=== PATIENT | male | born 1955 | race Caucasian/White ===

== ENCOUNTER 2022-06-10 10:01 | Observation (INO) | payer MEDICAID, SELFPAY ==
--- NOTE | 2022-06-10 | ECG_ITS ---
Test Reason : chest pain Blood Pressure : / mmHG Vent. Rate : 079 BPM Atrial Rate : 079 BPM P-R Int : 154 ms QRS Dur : 086 ms QT Int : 362 ms P-R-T Axes : 058 -49 053 degrees QTc Int : 415 ms Normal sinus rhythm Left axis deviation Septal infarct , age undetermined Abnormal ECG No previous ECGs available Referred By: Generic ED Physician Electronically Signed By:SADIQ PRIDE
--- NOTE | ~2022-06-10 | CT_ITS ---
EXAMINATION: CT ABDOMEN AND PELVIS WITHOUT CONTRAST CLINICAL INFORMATION: Acute kidney injury. Question obstruction. COMPARISON: None TECHNIQUE: Multidetector volumetric imaging was performed from the superior aspect of the liver through the pubic symphysis. Sagittal and coronal reformatted images were obtained on the technologist's workstation. This CT examination was performed using dose optimization techniques as appropriate, variously including the following: *Automated exposure control *Adjustment of mA and/or kV according to patient size (this includes techniques or standardized protocols for targeted exams where dose is matched to indication/reason for exam; i.e. extremities or head) *Use of iterative reconstruction technique DLP: 754 mGy-cm FINDINGS: LUNG BASES: Mild bibasilar atelectasis. LIVER, GALLBLADDER, AND BILIARY TREE: The liver is normal in size, shape, and attenuation. No focal hepatic lesion or biliary ductal dilatation is present. The gallbladder is unremarkable with no evidence of radiopaque gallstones, gallbladder wall thickening, or obvious pericholecystic inflammatory changes. PANCREAS: Unremarkable. SPLEEN: Unremarkable. ADRENAL GLANDS: Unremarkable. KIDNEYS AND URETERS: No ureteral calculi. No hydronephrosis. Mild bilateral perinephric stranding. 2 mm calcification in the left renal midpole calyx, probable small nonobstructing calculus. No suspicious renal lesions., BLADDER: Unremarkable. GASTROINTESTINAL TRACT: Nonobstructive bowel gas pattern. No acute findings evident with the small or large bowel.. The appendix is unremarkable. No free fluid. ABDOMINAL WALL: Small fat-containing umbilical hernia. LYMPH NODES: No adenopathy seen. VASCULAR: No aneurysmal aortic dilatation. Prominent atherosclerotic vascular calcification. PELVIC VISCERA: Prostate measures 4.6 cm transverse. Prostatic calcifications. OSSEOUS STRUCTURES: Spondylosis in the visualized spine. No acute findings seen. CT/CT abdomen pelvis wo IV con IMPRESSION: 1. Mild bilateral perinephric stranding. No ureteral calculi. No hydronephrosis. 2 mm nonobstructing left renal midpole calculus. 2. Mild bibasilar atelectasis. 3. Enlarged prostate. Fleischner guidelines were followed.
--- NOTE | ~2022-06-10 | XR_ITS ---
EXAMINATION: XR CHEST CLINICAL INFORMATION: Chest pain. COMPARISON: None TECHNIQUE: Frontal view of the chest was obtained. FINDINGS: No significant abnormality is noted involving the heart, lungs, mediastinum, bony thorax or soft tissues. XR/XR chest 1V IMPRESSION: No acute cardiopulmonary process.
[2022-06-10 10:34] VITALS: BP 128/68; PULSE 90; RESP 18; TEMP 36.4; O2SAT 98; BMI 33.0
--- NOTE | 2022-06-10 10:35 | MHC.EDTECH ---
EKG completed and signed by attending physician
[2022-06-10 10:40] VITALS: BP 157/66
--- NOTE | 2022-06-10 10:40 | PC.NURSE ---
Initial pressure charted in error patient pressure 157/66
[2022-06-10 11:01] LABS: Basophils Absolute Auto 0.1 X10*3/uL (0.0-0.2); Basophils Percent Auto 0.8 % (0-2); Eosinophils Absolute Auto 0.3 X10*3/uL (0.0-0.4); Hematocrit 39.6 % (42.0-52.0); Hemoglobin 12.8 g/dl (14.0-18.0); Imm Gran Abs Auto 0.01 X10*3/uL (0.00-0.03); Imm Gran Pct Auto 0.2 % (0.0-0.4); Lymphocytes Absolute Auto 2.2 X10*3/uL (1.2-4.9); Lymphocytes Percent Auto 33.2 % (20-40); MANUAL DIFF FLAG SCAN; Mean Corpuscular HGB Conc 32.3 g/dl (31.0-36.0); Mean Corpuscular Hemoglobin 27.6 pg (27.0-33.0); Mean Corpuscular Volume 85.5 fL (80.0-98.0); Mean Platelet Volume 9.6 fL (9.4-12.4); Monocytes Absolute Auto 0.6 X10*3/uL (0.1-1.2); Neutrophils Absolute Auto 3.5 x10*3/uL (2.0-8.3); Neutrophils Percent Auto 52.8 % (45-73); PLT CLUMP 1; Red Blood Count 4.63 X10*6/uL (4.60-5.80); Red Cell Distribution Width 12.6 % (11.0-16.0); SCAN SMEAR FLAG 1
[2022-06-10 11:06] LABS: Prothrombin Time 11.1 SEC (10.0-13.1)
[2022-06-10 11:19] LABS: Platelet Count 336 X10*3/uL (160-400); White Blood Count 6.6 X10*3/uL (4.8-10.8)
[2022-06-10 11:20] LABS: SLIDE REVIEW VERIFIED
[2022-06-10 11:23] LABS: Troponin-I High Sensitivity 5.8 ng/L (<3.5-35.0)
--- NOTE | 2022-06-10 13:16 | ED.CHESTPAIN ---
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 He describes it as a pressure on the left side of the chest, 2-06/10, that is relieved with burping or about and hour after taking Gas-X which he has been taking daily. He finds his symptoms occur with ingestion of dairy, breads, fried food, etc and do not occur with fish or vegetables. He denies fever, chills, night sweats, unexplained weight changes, n/v/d, constipation, abd pain, headache, dizziness, syncope, back pain, or extremity pain. They are unsure how long he will be visiting and does not have health insurance here. Expressed additional concerns of frequent urination and nocturia. 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 No known history of CAD. No family history of CAD/PE/DVT. Had COVID 3 weeks ago and denies residual symptoms. MD complaint: chest discomfort Onset (ago): week(s) (3) Timing of current episode: daily Prior episodes: Yes Onset: after eating Pain location: left chest Pain radiation: none Severity: mild Pain scale (0-10): 3 Quality: aching and sharp Relieving factors: medication-other (gas-x) Exacerbating factors: eating Context: recent travel (Pt from [place], new to [facility]) Treatment prior to arrival: none Risk Factors Coronary artery disease risk factors: smoking history and hypertension Thoracic aortic dissection risk factors: none Related Data Allergies Allergy/AdvReac Type Severity Reaction Status Date / Time Unable to Assess Allergy Verified 06/10/22 13:20 Review of Systems Review of Systems: Yes all other systems are reviewed and are negative Constitutional: Constitutional: Reports no additional constitutional complaints, Denies body ache(s), Denies chills, Denies fever(s), Denies headache(s) and Denies weakness Eyes: Eyes: Reports no additional eye complaints and Denies change in vision ENT: Reports system reviewed and no additional complaints, except as documented, Denies dizziness, Denies headache(s), Denies nasal congestion, Denies nasal discharge and Denies neck pain Cardiovascular: Cardiovascular: Reports as per HPI, Reports no additional cardiovascular complaints, Denies chest pain, Denies leg edema and Denies dyspnea Respiratory: Respiratory: Reports no additional respiratory complaints, Denies cough and Denies dyspnea Gastrointestinal: Gastrointestinal: Reports no additional gastrointestinal complaints, Denies abdominal pain, Denies diarrhea, Denies nausea and Denies vomiting Genitourinary: Genitourinary: Reports nocturia, Reports urinary frequency and Denies urinary incontinence Musculoskeletal: Musculoskeletal: Reports no additional musculoskeletal complaints, Denies back pain, Denies arthralgias, Denies joint swelling, Denies neck pain, Denies numbness and Denies tingling Integumentary/Breasts: Skin/Breast: Reports system reviewed and no additional complaints, except as docu and Denies rash Neurologic: Reports system reviewed and no additional complaints, except as documented, Denies Abnormal speech present, Denies dizziness, Denies headache(s), Denies numbness, Denies tingling and Denies weakness [facility] Past Medical History Attestation statement: The following information was validated with the patient. Source: old records reviewed and nursing notes reviewed Social History Social History Alcohol intake: never Smoked in Last 30 Days: No Use of substances other than those prescribed or required for medical reasons: No Advance Directives: Yes Advance Directives Information Provided: Yes Advance Directives on File: No Physical Exam Vital Signs: Vital Signs: Last Vital Signs Temp 97.5 F 06/10/22 10:34 Pulse 67 06/10/22 13:29 Resp 20 06/10/22 13:29 BP 154/55 H 06/10/22 13:29 Pulse Ox 96 06/10/22 13:29 O2 Del Method 06/10/22 13:29 BMI result Body Mass Index 33.0 Const: General: cooperative, healthy appearing, comfortable and no acute distress Orientation/consciousness: patient oriented x3 Limitations: no limitations HEENT: Head: Yes normal to inspection Ears: hearing grossly normal bilaterally General nose exam: Normal external nose present Face and sinus: Yes normal facial exam Mouth: Normal oral and palatal mucosa present Throat: Yes posterior oropharynx normal Eyes: General: appearance normal, both eyes and all related structures Pupils: Equal, round and reactive pupils present Neck: Neck: Yes normal visual inspection Chest: Chest palpation & inspection: normal inspection of the chest Resp: Effort & Inspection: normal respiratory effort Auscultation: clear to auscultation bilaterally Cardio: Rate: regular rate Rhythm: regular rhythm Peripheral pulses: Peripheral pulses 2+ throughout GI: Inspection: Yes normal to inspection Palpation (GI): Soft to palpation and nontender Auscultation: normal bowel sounds Back/Spine/Pelvis: Thoracic/Lumbar Spine: thoracic and lumbar spine normal to inspection Skin: General skin exam: no rashes or lesions noted Neuro: General: patient oriented x3, no focal motor deficits and normal sensation to monofilament Cranial nerves: Yes Equal, round and reactive pupils present Cognition (Neuro): normal cognition Speech: No Abnormal speech present Gait exam (Neuro): Normal gait present Motor exam (neuro): 5/5 motor strength present throughout Extrem: General: Yes normal to inspection, Yes no pedal edema and Yes no calf tenderness Course Course Course Narrative: Labs show JC with mild hyperK. no previous labs for comparison available. Patient denies any history of renal issues in the past. Patient denies NSAID use, on norvasc only. Does report drinks about 8 ounces of water daily which is typical for him. Also reports urinary urgency, nocturia. ?BPH or obstructive cause. Will obtain UA. Will need admission. troponin is flat. EKG shows no ischemic changes. Chest pain not typical for ACS. Low concern for dissection or PE. Patient is COVID screen positive. Patient had COVID 3 weeks ago and reports he recovered from this. will admit for further workup Medications Administered Discontinued Medications Generic Name Dose Route Start Last Admin Trade Name Freq PRN Reason Stop Dose Admin Sodium Chloride 1,000 mls @ 999 mls/hr 06/10/22 15:45 06/10/22 16:39 Ns IV 06/10/22 16:45 999 mls/hr .Q1H1M [facility] Administration Medical Decision Making Medical Decision Making [facility] Narrative: This patient presents with chest pain, with symptoms suggestive of noncardiac chest pain. History without high risk features (e.g., no exertional component, not relieved with rest, diet-related and relieved with burping and gas-x ). CAD risk factors including age, smoking history and hypertension. Exam without evidence of volume overload. EKG without signs of active ischemia. HEART score:3. Given the timing of pain to ER presentation, single troponin to evaluate for NSTEMI. Presentation not consistent with acute PE (Wells low risk 0.0 points // PERC +1 for age), pneumothorax, thoracic arotic dissection, cardiac effusion or tamponade. Plan: labs, troponin, EKG, CXR, serial reassessment We had a lengthy discussion about a coming up with a plan based on how long he was deciding to stay in the [facility]. He will need to get health insurance and establish a primary care provider. Differential Diagnosis Differential Diagnoses: The differential diagnosis associated with the presentation includes see discussion above Admission/Observation Consideration of admission/observation: Escalation of care including admission/observation considered JC-need further w/u, IVF, re-assessment Consult Healthcare Provider Management of the patient was discussed with: Hospitalist spoke to dr baugh who accepted admission Lab Data MDM Lab Attestation statement: I reviewed the patient's lab results. 06/10/22 10:53 Labs: Lab Results 06/10/22 06/10/22 06/10/22 Range/Units 10:53 10:53 10:53 WBC 6.6 (4.8-10.8) X10*3/uL RBC 4.63 (4.60-5.80) X10*6/uL Hgb 12.8 L (14.0-18.0) g/dl Hct 39.6 L (42.0-52.0) % MCV 85.5 (80.0-98.0) fL MCH 27.6 (27.0-33.0) pg MCHC 32.3 (31.0-36.0) g/dl RDW 12.6 (11.0-16.0) % Plt Count 336 (160-400) X10*3/uL MPV 9.6 (9.4-12.4) fL Immature Gran % (Auto) 0.2 (0.0-0.4) % Neut % (Auto) 52.8 (45-73) % Lymph % (Auto) 33.2 (20-40) % Stoddard % (Auto) 9.0 (2-11) % Eos % (Auto) 4.0 (0-4) % Baso % (Auto) 0.8 (0-2) % Lymph # (Auto) 2.2 (1.2-4.9) X10*3/uL Stoddard # (Auto) 0.6 (0.1-1.2) X10*3/uL Eos # (Auto) 0.3 (0.0-0.4) X10*3/uL Baso # (Auto) 0.1 (0.0-0.2) X10*3/uL Abs Immat Gran (auto) 0.01 (0.00-0.03) X10*3/uL Absolute Neuts (auto) 3.5 (2.0-8.3) x10*3/uL Absolute Nucleated RBC 0.000 (0.0-0.012) X10*3/uL Nucleated RBC % (auto) 0.0 (0.0-0.2) /100WBC Smear Tech's Comments VERIFIED PT 11.1 (10.0-13.1) SEC INR 1.0 (0.9-1.1) Sodium (135-145) mmol/L Potassium (3.3-5.1) mmol/L Chloride (96-108) mmol/L Carbon Dioxide (22-29) mmol/L Anion Gap (12-20) BUN (9-16) mg/dL Creatinine (0.5-1.4) mg/dL Estim Creat Clear Calc Estimated GFR Random Glucose (60-115) mg/dL Calcium (8.4-10.2) mg/dL Total Bilirubin (0.0-1.0) mg/dL AST (5-37) U/L ALT (0-40) U/L Alkaline Phosphatase (39-117) U/L Troponin I High Sens 5.8 (<3.5-35.0) ng/L Total Protein (6.5-8.0) g/dL Albumin (3.5-5.0) g/dL Lipase (8-78) U/L COVID-19 (AJAY) (Negative) COVID-19 Clin Com 06/10/22 06/10/22 06/10/22 Range/Units 14:53 14:53 16:32 WBC (4.8-10.8) X10*3/uL RBC (4.60-5.80) X10*6/uL Hgb (14.0-18.0) g/dl Hct (42.0-52.0) % MCV (80.0-98.0) fL MCH (27.0-33.0) pg MCHC (31.0-36.0) g/dl RDW (11.0-16.0) % Plt Count (160-400) X10*3/uL MPV (9.4-12.4) fL Immature Gran % (Auto) (0.0-0.4) % Neut % (Auto) (45-73) % Lymph % (Auto) (20-40) % Stoddard % (Auto) (2-11) % Eos % (Auto) (0-4) % Baso % (Auto) (0-2) % Lymph # (Auto) (1.2-4.9) X10*3/uL Stoddard # (Auto) (0.1-1.2) X10*3/uL Eos # (Auto) (0.0-0.4) X10*3/uL Baso # (Auto) (0.0-0.2) X10*3/uL Abs Immat Gran (auto) (0.00-0.03) X10*3/uL Absolute Neuts (auto) (2.0-8.3) x10*3/uL Absolute Nucleated RBC (0.0-0.012) X10*3/uL Nucleated RBC % (auto) (0.0-0.2) /100WBC Smear Tech's Comments PT (10.0-13.1) SEC INR (0.9-1.1) Sodium 139 (135-145) mmol/L Potassium 5.4 H (3.3-5.1) mmol/L Chloride 112 H (96-108) mmol/L Carbon Dioxide 14 L (22-29) mmol/L Anion Gap 18 (12-20) BUN 28 H (9-16) mg/dL Creatinine 2.38 H (0.5-1.4) mg/dL Estim Creat Clear Calc 30.8 Estimated GFR 27 Random Glucose 92 (60-115) mg/dL Calcium 8.8 (8.4-10.2) mg/dL Total Bilirubin 0.4 (0.0-1.0) mg/dL AST 14 (5-37) U/L ALT 7 (0-40) U/L Alkaline Phosphatase 106 (39-117) U/L Troponin I High Sens (<3.5-35.0) ng/L Total Protein 6.5 (6.5-8.0) g/dL Albumin 3.3 L (3.5-5.0) g/dL Lipase 59 Cancelled (8-78) U/L COVID-19 (AJAY) Positive A (Negative) COVID-19 Clin Com See Note Independent Interpretation I performed an independent interpretation of an: EKG and Plain X-Ray Interpretation: I independently EKG which shows NSR with rate 79, normal VA, normal QRS, normal QT I independently reviewed the chest x-ray and agree with radiologist's report Radiology Impression Discussion of test interpretation with radiology: I have reviewed the radiologist's reading. Radiologist Impression: [place] [id number] XRay Report Signed Patient: Kavon Mcdowell MR#: [id number] : 1955 Acct:[id number] Age/Sex: 66 / M ADM Date: 06/10/22 Loc: .ED Attending Dr: Ordering Physician: Generic ED Physician Date of Service: 06/10/22 Procedure(s): XR chest 1V Accession Number(s): [id number] cc: Generic ED Physician~ EXAMINATION: XR CHEST CLINICAL INFORMATION: Chest pain. COMPARISON: None TECHNIQUE: Frontal view of the chest was obtained. FINDINGS: No significant abnormality is noted involving the heart, lungs, mediastinum, bony thorax or soft tissues. XR/XR chest 1V IMPRESSION: No acute cardiopulmonary process. ? Independent Historian Clinical information obtained from an independent historian. History obtained from or confirmed by: Other (SON) Discharge Plan Discharge Clinical Impression: JC (acute kidney injury) Patient Disposition: Admitted As Inpatient
[2022-06-10 13:29] VITALS: BP 154/55; PULSE 67; RESP 20; O2SAT 96
[2022-06-10 15:34] LABS: Alanine Aminotransferase 7 U/L (0-40); Albumin Level 3.3 g/dL (3.5-5.0); Alkaline Phosphatase 106 U/L (39-117); Anion Gap 18 (12-20); Aspartate Amino Transferase 14 U/L (5-37); Bilirubin Total 0.4 mg/dL (0.0-1.0); Blood Urea Nitrogen 28 mg/dL (9-16); Calcium 8.8 mg/dL (8.4-10.2); Carbon Dioxide 14 mmol/L (22-29); Chloride 112 mmol/L (96-108); Creatinine Clr Calc Pharmacy 30.8; Estimated Glomerular Filt Rate 27; Glucose Random 92 mg/dL (60-115); Lipase 59 U/L (8-78); Potassium 5.4 mmol/L (3.3-5.1); Sodium 139 mmol/L (135-145); Total Protein 6.5 g/dL (6.5-8.0)
[2022-06-10] MEDS: 0.9 % Sodium Chloride 1,000 ML 999 ML IV (16:39)
[2022-06-10 16:47] LABS: COVID-19 Test Positive (Negative); IDNOW Serial# 16C4AD1C
--- NOTE | 2022-06-10 17:59 | PM.IMHP ---
History of Present Illness Date of Service: 06/10/22 Attending physician on admission: Jayesh Rosales Chief Complaint: Postprandial chest pain Pt is a 66-year-old male with a PMH significant for?HTN on Norvasc and nicotine dependence who presents to the ED with?postprandial chest discomfort. Patient is here visiting family from the [facility] and states shortly after arriving here he began to have left-sided chest discomfort approximately 15 minutes after eating meals. Patient describes discomfort as a minor pressure on the left side of his chest, partly relieved by taking Gas-X pills or burping. Patient has recently reduced his intake of carbs and bread. Patient also states he has been having increased urination especially at night for the past couple of years. Denies hematuria, dysuria, flank pain. No fever, chills, nausea, vomiting. Denies palpitations. No shortness of breath. Patient denies abdominal pain. Patient did have COVID 4 weeks ago but states that he no longer has any symptoms. In the ED patient was afebrile but hypertensive at 157/66. Labs were significant for slightly elevated potassium at 5.4, BUN 28, creatinine of 2.38. CXR showed no acute cardiopulmonary process. EKG demonstrated normal sinus rhythm without evidence of ST elevations or depressions. Pt was treated with IVF. Pt will be admitted to the hospital under observation for treatment and further evaluation of possible JC. Review of Systems Review of Systems: Postprandial left-sided chest pressure Chronic polyuria Denies dysuria, flank pain No nausea, vomiting, fever, chills, diarrhea No abdominal pain Denies palpitations No shortness of breath Yes all other systems are reviewed and are negative PMFSH Social History Alcohol intake: never Smoked in Last 30 Days: No Use of substances other than those prescribed or required for medical reasons: No Advance Directives: Yes Advance Directives Information Provided: Yes Advance Directives on File: No Meds Allergies Allergy/AdvReac Type Severity Reaction Status Date / Time Unable to Assess Allergy Verified 06/10/22 13:20 Active Medications: Current Medications Acetaminophen (Acetaminophen 325 Mg Tablet) 650 mg PO Q6H PRN PRN Reason: Pain, Mild (Pain Scale 1-3) Docusate Sodium (Docusate Sodium 100 Mg Capsule) 100 mg PO DAILY PRN PRN Reason: Constipation Heparin Sodium (Porcine) (Heparin Sodium,Porcine 5,000 Unit/Ml Vial) 5,000 unit SUBCUT Q8H [facility] Lactated Ringer's (Lr) 1,000 mls @ 100 mls/hr IVCONT .Q10H GUSTAVO Ondansetron HCl (Ondansetron Hcl 4 Mg/2 Ml Vial) 4 mg IVPUSH Q8H PRN PRN Reason: Nausea and Vomiting Pharmacy Consult (Consult Rx Perform Med Rec) 1 each MISCELLANE ONCE PRN PRN Reason: Consult order Sodium Chloride (0.9 % Sodium Chloride Flush 3 Ml Syringe) 3 ml IVFLUSH QSHIFT GUSTAVO Physical Exam Vital Signs and Narrative: Vital Signs: Last Vital Signs Temp 97.5 F 06/10/22 10:34 Pulse 67 06/10/22 13:29 Resp 20 06/10/22 13:29 BP 154/55 H 06/10/22 13:29 Pulse Ox 96 06/10/22 13:29 O2 Del Method 06/10/22 13:29 BMI result Body Mass Index 33.0 Constitutional: Alert, in no acute distress. Mental Status: Oriented to person, place and time. Eyes: Pupils are equal, round, and reactive to light. Ear, Nose, and Throat: Oropharynx clear, mucous membranes moist. Ears and nose without deformities. Trachea midline. Respiratory: Clear to auscultation bilaterally. No wheezing, rales, or rhonchi. Cardiovascular: S1, S2 regular. No murmurs, rubs, or gallops. Gastrointestinal: Abdomen soft, non-tender, non-distended. Normal bowel sounds. Neurologic: Cranial nerves II-XII are grossly intact bilaterally. No focal neurological deficits. Moves all extremities spontaneously. Skin: No rashes or lesions noted. Musculoskeletal: No cyanosis or clubbing. Extremities: No edema. Psychiatric: Normal mood and affect. Results Labs 06/10/22 10:53 06/10/22 14:53 Labs: Laboratory Results - last 24 hr 06/10/22 06/10/22 06/10/22 10:53 10:53 10:53 MCV 85.5 MCH 27.6 MCHC 32.3 RDW 12.6 Plt Count 336 MPV 9.6 Immature Gran % (Auto) 0.2 Neut % (Auto) 52.8 Lymph % (Auto) 33.2 Teller % (Auto) 9.0 Eos % (Auto) 4.0 Baso % (Auto) 0.8 Lymph # (Auto) 2.2 Teller # (Auto) 0.6 Eos # (Auto) 0.3 Baso # (Auto) 0.1 Abs Immat Gran (auto) 0.01 Absolute Neuts (auto) 3.5 Absolute Nucleated RBC 0.000 Nucleated RBC % (auto) 0.0 Smear Tech's Comments VERIFIED PT 11.1 INR 1.0 Anion Gap Estim Creat Clear Calc Estimated GFR Random Glucose Calcium Total Bilirubin AST ALT Alkaline Phosphatase Troponin I High Sens 5.8 Total Protein Albumin Lipase COVID-19 (AJAY) COVID-19 Clin Com 06/10/22 06/10/22 06/10/22 14:53 14:53 16:32 MCV MCH MCHC RDW Plt Count MPV Immature Gran % (Auto) Neut % (Auto) Lymph % (Auto) Teller % (Auto) Eos % (Auto) Baso % (Auto) Lymph # (Auto) Teller # (Auto) Eos # (Auto) Baso # (Auto) Abs Immat Gran (auto) Absolute Neuts (auto) Absolute Nucleated RBC Nucleated RBC % (auto) Smear Tech's Comments PT INR Anion Gap 18 Estim Creat Clear Calc 30.8 Estimated GFR 27 Random Glucose 92 Calcium 8.8 Total Bilirubin 0.4 AST 14 ALT 7 Alkaline Phosphatase 106 Troponin I High Sens Total Protein 6.5 Albumin 3.3 L Lipase 59 Cancelled COVID-19 (AJAY) Positive A COVID-19 Clin Com See Note Imaging Radiologist's Impressions: Impressions Chest X-Ray 06/10/22 11:16 IMPRESSION: No acute cardiopulmonary process. Assessment and Plan (1) Elevated serum creatinine: Status: Acute Plan Pt is a 66-year-old male with a PMH significant for?HTN on Norvasc and nicotine dependence who presents to the ED with?postprandial chest discomfort. Patient is here [place] [facility] shortly after arriving here he began to have left-sided chest discomfort approximately 15 minutes after eating meals. Was found to have a creatinine of 2.38 on labs. Patient will be admitted on observation for further treatment evaluation of possible JC. Elevated creatinine Question of acute versus chronic Patient's creatinine was 2.38, no prior labs available for comparison Patient with chronic polyuria for the past couple years but otherwise asymptomatic: No dysuria, flank pain, fever, chills, nausea, vomiting CT of abdomen pelvis IVF Repeat labs tomorrow morning Postprandial chest discomfort Pt with left-sided chest pain 15 minutes after eating meals, partly relieved with Gas-X pills Patient's symptoms have occurred since here visiting the [facility] Troponin negative, EKG negative for ischemia or ST elevations or depressions Omeprazole 20 mg p.o. q.d. Elevated potassium Patient's potassium 5.4 Repeat labs in the morning HTN Continue home meds, pending med rec Nicotine dependence Patient currently smokes 1 pack cigarettes daily Nicoderm patch Encourage smoking cessation Full Code Attending:?Dr. Rosales DVT Prophylaxis: Lovenox Patient be admitted to observation for treatment and further evaluation of possible JC. Time Spent With Patient Time: Total time managing care of this patient today ____ minutes. Quality Stroke Does the patient have a stroke diagnosis?: No VTE Prior VTE?: No VTE Risk Level:: Medical - moderate - high VTE Device Contraindication: Treatment Not Indicated VTE Drug Contraindication: N/A - Med Ordered
[2022-06-10] MEDS: Nicotine 21 MG PATCH.TD24 TRANSDERMA (18:47)
[2022-06-10] MEDS: Heparin Sodium,Porcine 5,000 UNIT/ML VIAL 5000 UNIT SUBCUT (18:48)
[2022-06-10] MEDS: Lactated Ringers 1,000 ML 100 ML IVCONT (18:50)
--- NOTE | 2022-06-10 22:07 | MHC.CM.ED ---
CM met with patient and son at request of Reyna HWANG. Pt speaks Uzbek and is from [place]. Pt speaks limited Greenlandic. Son is Greenlandic speaking. Pt tells me he is visiting from [place]. Has 3 sons in the [place]. Tells CM he got Covid on the plane and has been having trouble with chest discomfort, silver after eating. Pt has no insurance or PCP in this country. Has been here for about a month. Son tells CM is father is waiting for a green card. No idea when that will come. Given Financial services pamphlet. Will send referral to financial services. Pt was pending admission when CM met with the him. CM will follow for discharge needs.
[2022-06-10 23:37] VITALS: BP 129/50; PULSE 78; RESP 17; TEMP 36.9; O2SAT 94
[2022-06-11] VITALS: BP 165/70; PULSE 81; RESP 18; TEMP 36.6; O2SAT 97
--- NOTE | 2022-06-11 00:54 | PC.NURSE ---
Assumed care of pt. at 1900. Pt. resting in bed at that time with no complaints. Pt. has LR running at 100mL/hr. Pt. either sleeping or resting until he was assigned a bed [place] [facility]. Report called to Jie and pt. transported by devonte Ayala.
[2022-06-11 02:42] VITALS: BMI 33.0
[2022-06-11] MEDS: Lactated Ringers 1,000 ML 100 ML IVCONT ×2 (05:40→15:03)
[2022-06-11] MEDS: Omeprazole 20 MG CAPSULE.DR PO ×2 (05:41→15:03)
[2022-06-11 07:28] VITALS: BP 119/59; PULSE 67; RESP 20; TEMP 36.1; O2SAT 94
[2022-06-11 07:39] LABS: Blood Urea Nitrogen 31 mg/dL (9-16); Calcium 8.6 mg/dL (8.4-10.2); Creatinine Clr Calc Pharmacy 27.1; Estimated Glomerular Filt Rate 24; Glucose Random 87 mg/dL (60-115)
[2022-06-11 07:55] LABS: Anion Gap 16 (12-20); Carbon Dioxide 18 mmol/L (22-29); Chloride 111 mmol/L (96-108); Potassium 4.5 mmol/L (3.3-5.1); Sodium 140 mmol/L (135-145)
[2022-06-11] MEDS: Heparin Sodium,Porcine 5,000 UNIT/ML VIAL 5000 UNIT SUBCUT ×2 (09:00→16:52)
[2022-06-11] MEDS: amLODIPine Besylate 5 MG TABLET PO (09:00)
[2022-06-11] MEDS: 0.9 % Sodium Chloride Flush 3 ML SYRINGE IVFLUSH ×2 (09:01→15:04)
[2022-06-11] MEDS: Nicotine 21 MG PATCH.TD24 TRANSDERMA (09:11)
[2022-06-11 09:56] LABS: Prostate Specific Antigen 0.92 ng/mL (<0.05-4.0)
--- NOTE | 2022-06-11 10:42 | MHC.CM.PN ---
Patient visiting/staying with family from out of the country. Previously no services or equipment. Per MD, patient will be here for a significant amount of time and is requesting a referral to the financial office for [employer] application assistance as he will need physician follow ups as outpatient. D/C plan is return to staying with family via family. CM to follow.
--- NOTE | 2022-06-11 10:47 | MHC.CM.PN ---
referenced patient waiting on [place] citizenship; pending this with regards to [facility] application.
[2022-06-11] MEDS: Tamsulosin HCL 0.4 MG CAPSULE PO (11:18)
--- NOTE | 2022-06-11 13:01 | MHC.CM.PN ---
Faxed referral/face sheet with notation to [facility] [employer] ([phone]); referral packet in chart. CM to follow.
[2022-06-11 13:10] LABS: Phosphorus 3.7 mg/dL (2.7-4.5)
--- NOTE | 2022-06-11 13:55 | P.PNIM_ITS ---
Subjective Subjective Date of Service: 06/11/22 Interval History: Seen and evaluated Feels around normal less abd distention and burbing Cr went up overnight to 2.7 no other overnihgt events Physical Exam Vital Signs: Vital Signs: Last Vital Signs Temp 97.0 F 06/11/22 07:28 Pulse 67 06/11/22 07:28 Resp 20 06/11/22 07:28 BP 119/59 L 06/11/22 07:28 Pulse Ox 94 06/11/22 07:28 O2 Del Method 06/11/22 07:28 BMI result Body Mass Index 33.0 Const: Other: Constitutional : Awake, interactive, not in distress Neck : Normal inspection, Supple Cardiovascular : RRR, no JVP, no lower extremity edema Respiratory : good bilateral air entry, no crackles, wheezes or rhonchi Gastrointestinal: soft, lax, Normal bowel sounds, Non tender Skin : Warm, Dry Neurological : Alert & oriented x3, No focal deficit , CN 2-12 within normal Objective Data Active Medications Acetaminophen (Acetaminophen 325 Mg Tablet) 650 mg PO Q6H PRN PRN Reason: Pain, Mild (Pain Scale 1-3) Amlodipine Besylate (Amlodipine Besylate 5 Mg Tablet) 5 mg PO DAILY [facility]; Protocol Last Admin: 06/11/22 09:00 Dose: 5 mg Documented By: ARISTEO Docusate Sodium (Docusate Sodium 100 Mg Capsule) 100 mg PO DAILY PRN PRN Reason: Constipation Heparin Sodium (Porcine) (Heparin Sodium,Porcine 5,000 Unit/Ml Vial) 5,000 unit SUBCUT Q8H [facility] Last Admin: 06/11/22 09:00 Dose: 5,000 unit Documented By: ARISTEO Lactated Ringer's (Lr) 1,000 mls @ 100 mls/hr IVCONT .Q10H [facility] Last Admin: 06/11/22 05:40 Dose: 100 mls/hr Documented By: STANFORD Nicotine (Nicotine 21 Mg Patch.Td24) 21 mg TRANSDERMA DAILY [facility] Last Admin: 06/11/22 09:11 Dose: 21 mg Documented By: ARISTEO Omeprazole (Omeprazole 20 Mg Capsule.Dr) 20 mg PO BID@0630,1630 [facility] Last Admin: 06/11/22 05:41 Dose: 20 mg Documented By: STANFORD Ondansetron HCl (Ondansetron Hcl 4 Mg/2 Ml Vial) 4 mg IVPUSH Q8H PRN PRN Reason: Nausea and Vomiting Pharmacy Consult (Consult Rx Perform Med Rec) 1 each MISCELLANE ONCE PRN PRN Reason: Consult order Sodium Chloride (0.9 % Sodium Chloride Flush 3 Ml Syringe) 3 ml IVFLUSH QSHIFT [facility] Last Admin: 06/11/22 09:01 Dose: 3 ml Documented By: ARISTEO Tamsulosin HCl (Tamsulosin Hcl 0.4 Mg Capsule) 0.4 mg PO DAILY [facility] Last Admin: 06/11/22 11:18 Dose: 0.4 mg Documented By: ARISTEO Labs 06/10/22 10:53 06/11/22 06:49 Labs: Laboratory Results - last 24 hr 06/10/22 06/10/22 06/10/22 14:53 14:53 16:32 Anion Gap 18 Estim Creat Clear Calc 30.8 Estimated GFR 27 Random Glucose 92 Calcium 8.8 Phosphorus Total Bilirubin 0.4 AST 14 ALT 7 Alkaline Phosphatase 106 Total Protein 6.5 Albumin 3.3 L Lipase 59 Cancelled Prostate Specific Ag COVID-19 (AJAY) Positive A COVID-19 Clin Com See Note 06/11/22 06:49 Anion Gap 16 Estim Creat Clear Calc 27.1 Estimated GFR 24 Random Glucose 87 Calcium 8.6 Phosphorus 3.7 Total Bilirubin AST ALT Alkaline Phosphatase Total Protein Albumin Lipase Prostate Specific Ag 0.92 COVID-19 (AJAY) COVID-19 Clin Com Assessment and Plan (1) Elevated serum creatinine: Status: Acute (2) Metabolic acidosis: Status: Acute Plan Pt is a 66-year-old male with a PMH significant for?HTN on Norvasc and nicotine dependence who presents to the ED with?postprandial chest discomfort. Patient is here visiting family from the [place] and [facility] shortly after arriving here he began to have left-sided chest discomfort approximately 15 minutes after eating meals. Was found to have a creatinine of 2.38 on labs. Patient will be admitted on observation for further treatment evaluation of possible JC. Elevated creatinine w metabolic acidosis acute vs chronic Acidosis improving Phosphorus within normal Cr went up to 2.7 this morning chronic polyuria likely from enlarged prostate CT of abdomen pelvis no acute findings IVF pending nephro eval Enlarged prostate start Tamsulosin normal PSA Postprandial chest discomfort Troponin negative, EKG negative for ischemia or ST elevations or depressions seems all realated to GI PRN Simethicone Omeprazole 20 mg p.o. q.d. Elevated potassium resolved HTN Continue home meds, pending med rec Nicotine dependence Patient currently smokes 1 pack cigarettes daily Nicoderm patch Encourage smoking cessation Full Code DVT Prophylaxis: Heparin Time Spent With Patient Time: Total time managing care of this patient today ____ minutes. Quality Stroke Does the patient have a stroke diagnosis?: No VTE Prior VTE?: No VTE Risk Level:: Medical - moderate - high VTE Device Contraindication: Treatment Not Indicated VTE Drug Contraindication: N/A - Med Ordered
[2022-06-11] MEDS: Simethicone 80 MG TAB.CHEW PO (15:03)
[2022-06-11 15:47] VITALS: BP 151/68; PULSE 72; RESP 18; TEMP 36.6; O2SAT 96
[2022-06-11 19:53] VITALS: BP 136/65; PULSE 78; RESP 18; TEMP 36.6; O2SAT 97
--- NOTE | 2022-06-11 20:28 | PM.EVENT ---
Event Note Date of Service: 06/11/22 Event Note: Pt seen and examined Full w/u ordered Time Spent With Patient Time: Total time managing care of this patient today ____ minutes.
[2022-06-11 23:08] VITALS: BP 142/65; PULSE 70; RESP 18; TEMP 36.6; O2SAT 96
[2022-06-12] MEDS: Heparin Sodium,Porcine 5,000 UNIT/ML VIAL 5000 UNIT SUBCUT ×2 (03:09→09:27)
[2022-06-12] MEDS: Lactated Ringers 1,000 ML 100 ML IVCONT (03:10)
[2022-06-12] MEDS: Omeprazole 20 MG CAPSULE.DR PO (06:00)
[2022-06-12 07:56] LABS: Anion Gap 13 (12-20); Blood Urea Nitrogen 29 mg/dL (9-16); Calcium 8.6 mg/dL (8.4-10.2); Carbon Dioxide 20 mmol/L (22-29); Chloride 111 mmol/L (96-108); Creatinine Clr Calc Pharmacy 32.2; Estimated Glomerular Filt Rate 29; Glucose Random 90 mg/dL (60-115); Potassium 4.4 mmol/L (3.3-5.1); Sodium 140 mmol/L (135-145)
[2022-06-12 08:00] VITALS: BP 134/59; PULSE 81; RESP 20; TEMP 37.1; O2SAT 98
[2022-06-12 08:20] LABS: Vitamin D 25-OH Total 8.4 ng/mL (>30)
[2022-06-12] MEDS: Simethicone 80 MG TAB.CHEW PO (09:27)
[2022-06-12] MEDS: 0.9 % Sodium Chloride Flush 3 ML SYRINGE IVFLUSH (09:27)
[2022-06-12] MEDS: Tamsulosin HCL 0.4 MG CAPSULE PO (09:27)
[2022-06-12] MEDS: Nicotine 21 MG PATCH.TD24 TRANSDERMA (09:27)
[2022-06-12] MEDS: amLODIPine Besylate 5 MG TABLET PO (09:27)
--- NOTE | 2022-06-12 12:34 | P.DS_ITS ---
DS: Providers Provider Date of Service: 06/12/22 Date of admission: 06/10/22 17:48 Primary care physician: None Physician Consults: 06/11/22 07:58 Consult to Nephrology Routine Consulting Provider: Norberto Altman Reason for consultation: Elevated Cr, Metabolic acidosis, no baseline, worse after fluids ? DS: Diagnosis Discharge Diagnosis (1) Elevated serum creatinine: Status: Acute (2) Metabolic acidosis: Status: Acute (3) Hyperkalemia: Status: Acute DS: Summary Hospital Course Hospital Course: Admission note HPI Pt is a 66-year-old male with a PMH significant for?HTN on Norvasc and nicotine dependence who presents to the ED with?postprandial chest discomfort.? Patient is here visiting family from the [facility] and states shortly after arriving here he began to have left-sided chest discomfort approximately 15 minutes after eating meals. Patient describes discomfort as a minor pressure on the left side of his chest, partly relieved by taking Gas-X pills or burping.? Patient has recently reduced his intake of carbs and bread.? Patient also states he has been having increased urination especially at night for the past couple of years.? Denies hematuria, dysuria, flank pain.? No fever, chills, nausea, vomiting.? Denies palpitations.? No shortness of breath.? Patient denies abdominal pain.? Patient did have COVID 4 weeks ago but states that he no longer has any symptoms. In the ED patient was afebrile but hypertensive at 157/66. Labs were significant for slightly elevated potassium at 5.4, BUN 28, creatinine of 2.38. CXR showed no acute cardiopulmonary process. EKG demonstrated normal sinus rhythm without evidence of ST elevations or depressions. Pt was treated with IVF. Pt will be admitted to the hospital under observation for treatment and further evaluation of possible JC. Hospital course The patient was admitted for evaluation of newly noticed elevated Cr levels of 2.3 at time of admission. CT scan negative for obstruction but reported enlarge prostate with normal PSA. started on gentle hydration. Cr remained around same value over the course of hospital stay raising suspecion of CKD4 diagnosis with GFR<30. seen by wildlife science professor who ordered work up that is still pending at time of discharge. abdominal bloating and burning resolved with Omeprazole and Gasix. To follow with Dr Altman as scheduled, the office will call you to arrange Start Tamsulosin for prostate enlargement Start Omeprazole for stomach acidity Nicotine patches daily, we advise you to quit smoking Time Spent with Patient Time attestation: Total time managing care of this patient today ____ minutes. Discharge coordination time: Less than 30 minutes Quality: Safe Use of Opioids Does Pt have an Active Cancer Diagnosis on the Problem List?: No Quality: Stroke Does the patient have a stroke diagnosis?: No Physical Exam Vital Signs: Vital Signs: Last Vital Signs Temp 98.7 F 06/12/22 08:00 Pulse 81 06/12/22 08:00 Resp 20 06/12/22 08:00 BP 134/59 L 06/12/22 08:00 Pulse Ox 98 06/12/22 08:00 O2 Del Method 06/12/22 08:00 BMI result Body Mass Index 33.0 Const: Other: Constitutional : Awake, interactive, not in distress Neck : Normal inspection, Supple Cardiovascular : RRR, no JVP, no lower extremity edema Respiratory : good bilateral air entry, no crackles, wheezes or rhonchi Gastrointestinal: soft, lax, Normal bowel sounds, Non tender Skin : Warm, Dry Neurological : Alert & oriented x3, No focal deficit , CN 2-12 within normal DS: Data Data Completed and Pending Labs on day of discharge: Laboratory Results - last 24 hr 06/11/22 06/12/22 06/12/22 06:49 07:10 07:10 Sodium 140 Potassium 4.4 Chloride 111 H Carbon Dioxide 20 L Anion Gap 13 BUN 29 H Creatinine 2.28 H Estim Creat Clear Calc 32.2 Estimated GFR 29 Random Glucose 90 Calcium 8.6 Phosphorus 3.7 25-OH Vitamin D Total 8.[address] scan - abdomen: Radiologist's impression: ITS Impressions Chest X-Ray 06/10/22 11:16 IMPRESSION: No acute cardiopulmonary process. Abdomen/Pelvis CT 06/10/22 18:40 IMPRESSION: 1. Mild bilateral perinephric stranding. No ureteral calculi. No hydronephrosis. 2 mm nonobstructing left renal midpole calculus. 2. Mild bibasilar atelectasis. 3. Enlarged prostate. Fleischner guidelines were followed. Discharge Plan Discharge Anticipated Discharge Date/Time: 06/12/22 12:28 Patient Disposition: Home, Self-Care Discharge Diagnosis: Elevated kidney function Referrals: Physician,None [Primary Care Provider] - 1 Week Discharge Medications: New tamsulosin 0.4 mg Capsule 0.4 mg PO DAILY Qty: 90 0RF nicotine 21 mg/24 hr Patch 24 Hour 21 mg transdermal DAILY Qty: 30 0RF omeprazole 20 mg Capsule,Delayed Release(Dr/Ec) 20 mg PO DAILY Qty: 90 0RF Continued amlodipine 5 mg Tablet 5 mg PO DAILY Discharge Orders: Discharge Order (Routine); Ordered 06/12/22 Ordered By: Christian Hendrickson Diet: Advance to usual diet Activity on Discharge: As tolerated Stand Alone Forms: Patient Portal Discharge page Care Plan Goals: Read below Health Concerns: Read below Plan of Treatment: Read below Assessment: Noted to have elevated kidney function. monitored in the hospital and evaluated by kidney specialist who recommended outpatient follow up. To follow with Dr Altman as scheduled, the office will call you to arrange Start Tamsulosin for prostate enlargement Start Omeprazole for stomach acidity Nicotine patches daily, we advise you to quit smoking
--- NOTE | 2022-06-12 12:40 | MHC.CM.PN ---
DP: PT HAS BEEN MEDICALLY CLEARED FOR DC HOME, NO SERVICES. RN AWARE. FAMILY TO TRANSPORT
[2022-06-12 12:56] LABS: Creatinine Urine 74.71 mg/dL; Total Protein Urine Random 244 mg/dL (<12)
--- NOTE | 2022-06-12 13:01 | PM.PNNEP ---
Subjective Subjective Date of Service: 06/12/22 Interval history: Seen and evaluated less abd distention and burbing Cr better no other overnight events Physical Exam Vital Signs: Vital Signs: Last Vital Signs Temp 98.7 F 06/12/22 08:00 Pulse 81 06/12/22 08:00 Resp 20 06/12/22 08:00 BP 134/59 L 06/12/22 08:00 Pulse Ox 98 06/12/22 08:00 O2 Del Method 06/12/22 08:00 BMI result Body Mass Index 33.0 Const: Other: Constitutional : Awake, interactive, not in distress Neck : Normal inspection, Supple Cardiovascular : RRR, no JVP, no lower extremity edema Respiratory : good bilateral air entry, no crackles, wheezes or rhonchi Gastrointestinal: soft, lax, Normal bowel sounds, Non tender Skin : Warm, Dry Neurological : Alert & oriented x3, No focal deficit , CN 2-12 within normal Objective Data Labs 06/10/22 10:53 06/12/22 07:10 Labs: Laboratory Results - last 24 hr 06/11/22 06/12/22 06/12/22 06:49 07:10 07:10 Sodium 140 Potassium 4.4 Chloride 111 H Carbon Dioxide 20 L Anion Gap 13 BUN 29 H Creatinine 2.28 H Estim Creat Clear Calc 32.2 Estimated GFR 29 Random Glucose 90 Calcium 8.6 Phosphorus 3.7 25-OH Vitamin D Total 8.4 U Random Total Protein Ur Random Sodium Urine Creatinine 06/12/22 12:12 Sodium Potassium Chloride Carbon Dioxide Anion Gap BUN Creatinine Estim Creat Clear Calc Estimated GFR Random Glucose Calcium Phosphorus 25-OH Vitamin D Total U Random Total Protein 244 H Ur Random Sodium 109.0 Urine Creatinine 74.71 Procedures Date of Service Date of Service: 06/12/22 Assessment & Plan Assessment and plan (1) JC (acute kidney injury): Status: Acute (2) CKD (chronic kidney disease) stage 3, GFR 30-59 ml/min: Status: Acute Plan 1. JC ? Mild 2. CKD 3/4 at baseline 3. Vit D deficiency 4. HTN Can d/c IVF Stated pt on Vit D 2000 units daily F/u PTH F/u immunofixation Can be d/c'd and we will arrange out pt f/u D/w Medical team Time Spent With Patient Time: Total time managing care of this patient today ____ minutes. Progress Note: Quality Stroke Does the patient have a stroke diagnosis?: No
--- NOTE | 2022-06-13 08:20 | CONS_ITS ---
DATE OF SERVICE: 06/11/2022 REASON FOR CONSULTATION: Consult requested by the medical team to evaluate and help in management of patient's renal insufficiency. HISTORY OF PRESENT ILLNESS: The patient is a 66-year-old male with past medical history of hypertension and history of nicotine dependence, who presented to the hospital with postprandial chest discomfort. Apparently, he has been visiting his family from [facility], and shortly after arriving, he had left-sided chest pain/discomfort for approximately 15 minutes. It was on the left side. The pain was partially relieved by Gas-X. He has increased urination, especially in the night for the past couple of years. There is no hematuria, dysuria, flank pain, fever, chills, nausea, vomiting, or diarrhea. He denied any palpitation or shortness of breath. There is no abdominal pain. He did have COVID about 4 weeks ago, but no new symptoms. In the ER, the patient is slightly hypertensive, and he had significant blood work including BUN of 28 and creatinine of 2.38. We do not have any baseline creatinine. The patient is unaware of any major kidney problems. Received IV fluids and was admitted to the hospital for further evaluation and management. REVIEW OF SYSTEMS: As noted above. Other systems reviewed and negative. PERSONAL AND SOCIAL HISTORY: The patient does not smoke, drink, or use drugs. ALLERGIES: NO KNOWN DRUG ALLERGIES. MEDICATIONS: 1. Tylenol. 2. Colace. 3. Amlodipine. PAST SURGICAL HISTORY: Not significant. PHYSICAL EXAMINATION: GENERAL: The patient is resting in the bed. Awake, alert, and oriented x3. No significant distress. VITAL SIGNS: Blood pressure was 119/59, pulse 67, and afebrile. HEENT: Pupils equal and reactive bilaterally to light. Mucosa is moist. There is no scleral icterus or conjunctival congestion. NECK: No jugular venous distention is noted. Neck is supple. No thyromegaly is noted. CARDIOVASCULAR SYSTEM: S1 and S2 without rub or murmur. RESPIRATORY SYSTEM: Mildly decreased in bases. No crepitation or rhonchi is heard. ABDOMEN: Soft and nontender. No guarding. No rigidity. Bowel sounds normal. EXTREMITIES: No edema. LABS: Done today, sodium 140, potassium 4.5, chloride 111, CO2 of 18, BUN 31, and creatinine 2.71. WBC 6.6, hemoglobin 12.8, hematocrit 40, and platelets 336. Liver function tests are normal. COVID testing was positive. IMPRESSION: 1. A 66-year-old male with acute on chronic kidney disease versus chronic kidney disease. We do not have a baseline creatinine on this patient. Since admission, his creatinine has increased from 2.3 to 2.7 and it is unclear if this is normal fluctuation versus acute kidney injury. The patient clinically does not look prerenal, and CT scan of the abdomen and pelvis without intravenous contrast did not show any obstructing renal stones or hydronephrosis. Bladder was unremarkable. I do not have any urine studies on the patient to comment on possibility of acute GN/interstitial disease. The possibility of COVID-induced renal disease is always on the differential diagnosis. 2. Mild non-anion gap metabolic acidosis. 3. Possible BPH with prostatic symptoms. 4. Postprandial chest pain. 5. Hypertension. RECOMMENDATION: At this juncture, I have taken liberty to order full urinalysis. I have also ordered a spot urine for electrolytes, protein, and creatinine. I agree with gentle hydration for this patient with LR at 100 mL/hour. Continue with present antihypertensive regimen. Avoid using nephrotoxic agents. I have taken the liberty to order workup for secondary hyperparathyroidism including calcium, phosphorus, PTH, and vitamin D levels. We will also check serum immunofixation for this patient. If the patient has persistent acidosis, we might have to add sodium bicarbonate. Thank you for allowing me to participate in medical management of the patient. MD CARLOS Alicia/MAURICIO / [phone]
[2022-06-15 20:03] LABS: IgA 339 mg/dL (70-320); IgG 882 mg/dL (600-1540); IgM 37 mg/dL (50-300)
[2022-06-16 13:13] LABS: Calcium (PTHI) 8.8 mg/dL (8.6-10.3); PTHI 98 pg/mL (16-77)
== END 2022-06-12 13:31 | disposition home or self-care (01) ==
LOC: HO.ED 17:32 → HO.EDOVER 18:00 → HO.IMC 23:15
PROVIDERS: Internal Medicine Nephrology; Nurse Practitioner Family; Admitting Provider Student in an Organized Health Care Education/Training Program; Emergency Provider Emergency Medicine; Visit Provider Student in an Organized Health Care Education/Training Program
DX: R07.9 Chest pain, unspecified (principal); E87.5 Hyperkalemia; E87.21 Acute metabolic acidosis; R94.4 Abnormal results of kidney function studies; I10 Essential (primary) hypertension; N40.0 Benign prostatic hyperplasia without lower urinary tract symptoms; R14.0 Abdominal distension (gaseous); Z12.5 Encounter for screening for malignant neoplasm of prostate; Z79.899 Other long term (current) drug therapy
CPT/HCPCS: 36415; 71045; 74176; 80048; 80053; 82306; 82784; 83690; 83970; 84100; 84153; 84156; 84300; 84484; 85025; 85610; 86334; 87635; 93005; 96360; 96361; 96372; 99222; 99285; J1643